=== PATIENT | male | born 1975 | race Caucasian/White ===

== ENCOUNTER 2017-01-10 20:04 | Inpatient (IN) | payer OTHER ==
[2017-01-10] MEDS: PROPOFOL/EMULSION 100 ML IV SCH ×2 (20:12→21:53)
[2017-01-10] MEDS ORDERED: NS 1,000 ML IV ONE (20:14)
--- NOTE | 2017-01-10 20:14 | EDPHY ---
H & P Time Seen by Provider: 01/10/17 20:04 HPI/ROS: CHIEF COMPLAINT: Seizure HISTORY OF PRESENT ILLNESS: History is from EMS as patient is nonverbal. Apparently at the concert tonight he was found grabbing onto a hand rail or balcony rail having seizure. He was helped to the ground. No history of fall or physical trauma. He received 4 mg IV Versed EN route and on arrival is obtunded and nonverbal. Further history and review of systems is unobtainable on arrival because the patient is nonverbal. PAST MEDICAL HISTORY: Unobtainable, nonverbal Family history: Unknown, nonverbal Social history: Unknown, nonverbal General Appearance: Patient is obtunded and snoring on arrival. Eyes: Pupils are 5 mm bilaterally ENT, Mouth: Patient has saliva in the mouth but no tongue lacerations or oral trauma. Respiratory: Snoring respirations. Cardiovascular: Regular rate and rhythm. Gastrointestinal: Abdomen is soft and non tender. Neurological: Patient is obtunded and nonverbal, no spontaneous movement of any extremity. Skin: Warm and dry, no rashes. No lacerations or evidence of trauma. Musculoskeletal: No peripheral edema and no joint swelling. No spinal step-off. No extremity deformity. Psychiatric: Unable, nonverbal. Emergency Department course/MDM: Patient had snoring respirations and clearly unable to protect his airway. He was intubated emergently on arrival for airway protection. Patient went immediately to CT scan. 1 g IV Keppra. Discussed with [facility] in detail. Agrees with evaluation and treatment plan, no further recommendations. Placed on a propofol drip for sedation. Admission to hospitalist service Dr. Barajas to the ICU. Constitutional: Initial Vital Signs Temperature (C) 37.6 C 01/10/17 20:05 Heart Rate 140 H 01/10/17 20:05 Respiratory Rate 12 01/10/17 20:05 Blood Pressure 134/70 H 01/10/17 20:05 O2 Sat (%) 99 01/10/17 20:05 O2 Delivery Mode Ventilator Allergies/Adverse Reactions: Unable to Assess Allergy (Unverified 01/10/17 21:50) Home Medications: Medication Instructions Recorded Unobtainable 01/10/17 Medical Decision Making - Diagnostics EKG Interpretation: 12-lead EKG interpreted by me; official reading is in trace master. My interpretation is sinus tachycardia rate 128 with no ischemic changes. Imaging Results: Imaging Impressions Chest X-Ray 01/10/17 20:14 Impression: 1. Endotracheal tube position with the tip approximately 3 cm above the patel. 2. Probable artifactual widening of the upper mediastinum. 3. Shallow aspiration exaggerates lung markings. 4. Probable normal heart size. Head CT 01/10/17 20:14 Impression: 1. Negative for hemorrhage or mass lesion. A seizure focus is not identified. 2. See above report for additional findings. Results called to Charan ZHENG M.D. on 01/10/2017 at 20:39 Procedures: Indication for the procedure was obtunded, status epilepticus. Consent is implied as the patient is obtunded. The patient was preoxygenated with 100% oxygen by face mask. The patient was sedated with propofol and paralyzed with Rocuronium 100 mg. The patient was orally endotracheally intubated under direct visualization with a 8.0 ETT. Tracheal intubation was confirmed with misting on the tube; breath sounds were auscultated equally bilaterally; appropriate color change with [place] Tidal CO2 detector, capnography waveform is appropriate, oxygen saturation after procedure is 98%. Chest X-ray shows ETT in good position. The procedure was performed by myself. Differential Diagnosis: Differential diagnosis considered for a seizure including but not limited to electrolyte abnormality, alcohol withdrawal, medication noncompliance, head injury, and breakthrough seizure. Consult/Admit Bed Type: [facility] 2056, [facility] 2109 Critical Care Time: Critical care time spent by me, Dr. 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 The organ system at risk was neurologic and I ordered anti seizure medication Keppra, propofol drip, multiple diagnostics, consultation with hospitalist and [facility]; to stabilize the patient and prevent worsening of the patient's condition. - Data Points Laboratory Results: Laboratory Results 01/10/17 20:17 01/10/17 20:17 01/10/17 01/10/17 01/10/17 20:45 20:35 20:17 WBC RBC Hgb POC Hgb Hct POC Hct MCV MCH MCHC RDW Plt Count MPV Neut % (Auto) Lymph % (Auto) Citrus % (Auto) Eos % (Auto) Baso % (Auto) Nucleat RBC Rel Count Absolute Neuts (auto) Absolute Lymphs (auto) Absolute Monos (auto) Absolute Eos (auto) Absolute Basos (auto) Absolute Nucleated RBC Immature Gran % Immature Gran # Puncture Site LEFT RADIAL Patient Temperature 37.9 DEGREES DEGREES pCO2 49 mmHg H mmHg (34-38) pO2 230 mmHg H mmHg (65-75) Total CO2 23 mEq/L mEq/L (23-27) ABG pH 7.27 L (7.35-7.45) ABG PO2/FiO2 Ratio 230 RATIO RATIO ABG HCO3 22 mEq/L mEq/L (22-26) ABG O2 Saturation 99 % H % (92-95) ABG Base Excess -4.8 mEq/L L mEq/L (-2.5-2.5) O2 Concentration % 100 % % (0-100) Actual Respiration Rate 14 Set Respiration Rate 14 SIMV YES Tidal Volume 700 PEEP 5 Peak Inspir Pressure 20.6 Pressure Support 7 POC Sodium Sodium POC Potassium Potassium POC Chloride Chloride Carbon Dioxide Anion Gap POC BUN BUN Creatinine POC Creatinine Estimated GFR Glucose POC Glucose Calcium Creatine Kinase 184 IU/L IU/L (0-224) Troponin I < 0.012 ng/mL ng/mL (0-0.034) Urine Opiates Screen NEGATIVE (NEGATIVE) Urine Barbiturates NEGATIVE (NEGATIVE) Ur Phencyclidine Scrn NEGATIVE (NEGATIVE) Ur Amphetamine Screen NON-NEGATIVE H (NEGATIVE) U Benzodiazepines Scrn NEGATIVE (NEGATIVE) Urine Cocaine Screen NEGATIVE (NEGATIVE) U Marijuana (THC) Screen NEGATIVE (NEGATIVE) Ethyl Alcohol 01/10/17 01/10/17 01/10/17 20:17 20:17 20:17 WBC 10.03 10^3/uL H 10^3/uL (3.80-9.50) RBC 4.97 10^6/uL 10^6/uL (4.40-6.38) Hgb 15.1 g/dL g/dL (13.7-17.5) POC Hgb Hct 43.3 % % (40.0-51.0) POC Hct MCV 87.1 fL fL (81.5-99.8) MCH 30.4 pg pg (27.9-34.1) MCHC 34.9 g/dL g/dL (32.4-36.7) RDW 11.9 % % (11.5-15.2) Plt Count 315 10^3/uL 10^3/uL (150-400) MPV 9.8 fL fL (8.7-11.7) Neut % (Auto) 73.2 % % (39.3-74.2) Lymph % (Auto) 18.7 % % (15.0-45.0) Citrus % (Auto) 6.3 % % (4.5-13.0) Eos % (Auto) 0.3 % L % (0.6-7.6) Baso % (Auto) 1.0 % % (0.3-1.7) Nucleat RBC Rel Count 0.0 % % (0.0-0.2) Absolute Neuts (auto) 7.34 10^3/uL H 10^3/uL (1.70-6.50) Absolute Lymphs (auto) 1.88 10^3/uL 10^3/uL (1.00-3.00) Absolute Monos (auto) 0.63 10^3/uL 10^3/uL (0.30-0.80) Absolute Eos (auto) 0.03 10^3/uL 10^3/uL (0.03-0.40) Absolute Basos (auto) 0.10 10^3/uL 10^3/uL (0.02-0.10) Absolute Nucleated RBC 0.00 10^3/uL 10^3/uL (0-0.01) Immature Gran % 0.5 % % (0.0-1.1) Immature Gran # 0.05 10^3/uL 10^3/uL (0.00-0.10) Puncture Site Patient Temperature pCO2 pO2 Total CO2 ABG pH ABG PO2/FiO2 Ratio ABG HCO3 ABG O2 Saturation ABG Base Excess O2 Concentration % Actual Respiration Rate Set Respiration Rate SIMV Tidal Volume PEEP Peak Inspir Pressure Pressure Support POC Sodium Sodium 142 mEq/L mEq/L (134-144) POC Potassium Potassium 4.9 mEq/L mEq/L (3.5-5.2) POC Chloride Chloride 106 mEq/L mEq/L (97-110) Carbon Dioxide 20 mEq/l L mEq/l (22-31) Anion Gap 16 mEq/L mEq/L (8-16) POC BUN BUN 15 mg/dL mg/dL (7-23) Creatinine 1.1 mg/dL mg/dL (0.7-1.3) POC Creatinine Estimated GFR > 60 Glucose 88 mg/dL mg/dL (70-100) POC Glucose Calcium 9.1 mg/dL mg/dL (8.5-10.4) Creatine Kinase Troponin I Urine Opiates Screen Urine Barbiturates Ur Phencyclidine Scrn Ur Amphetamine Screen U Benzodiazepines Scrn Urine Cocaine Screen U Marijuana (THC) Screen Ethyl Alcohol 244 mg/dL H mg/dL (0-10) 01/10/17 20:08 WBC RBC Hgb POC Hgb 16.0 gm/dL gm/dL (13.7-17.5) Hct POC Hct 47 % % (40-51) MCV MCH MCHC RDW Plt Count MPV Neut % (Auto) Lymph % (Auto) Citrus % (Auto) Eos % (Auto) Baso % (Auto) Nucleat RBC Rel Count Absolute Neuts (auto) Absolute Lymphs (auto) Absolute Monos (auto) Absolute Eos (auto) Absolute Basos (auto) Absolute Nucleated RBC Immature Gran % Immature Gran # Puncture Site Patient Temperature pCO2 pO2 Total CO2 ABG pH ABG PO2/FiO2 Ratio ABG HCO3 ABG O2 Saturation ABG Base Excess O2 Concentration % Actual Respiration Rate Set Respiration Rate SIMV Tidal Volume PEEP Peak Inspir Pressure Pressure Support POC Sodium 143 mEq/L mEq/L (134-144) Sodium POC Potassium 4.5 mEq/L mEq/L (3.3-5.0) Potassium POC Chloride 105 mEq/L mEq/L (97-110) Chloride Carbon Dioxide Anion Gap POC BUN 16 mg/dL mg/dL (7-23) BUN Creatinine POC Creatinine 1.2 mg/dL mg/dL (0.7-1.3) Estimated GFR Glucose POC Glucose 92 mg/dL mg/dL (70-100) Calcium Creatine Kinase Troponin I Urine Opiates Screen Urine Barbiturates Ur Phencyclidine Scrn Ur Amphetamine Screen U Benzodiazepines Scrn Urine Cocaine Screen U Marijuana (THC) Screen Ethyl Alcohol Medications Given: Discontinued Medications Sodium Chloride (Ns) 1,000 mls @ 0 mls/hr IV ONCE ONE; Wide Open PRN Reason: Protocol Stop: 01/10/17 20:15 Last Admin: 01/10/17 20:11 Dose: 1,000 mls Levetiracetam 1,000 mg/ Sodium (Chloride) 110 mls @ 420 mls/hr IV EDNOW ONE Stop: 01/10/17 20:42 Last Admin: 01/10/17 20:43 Dose: 110 mls Propofol (Diprivan) 100 mg IVP EDNOW ONE Stop: 01/10/17 20:16 Last Admin: 01/10/17 20:09 Dose: 100 mg Rocuronium Susan (Zemuron) 100 mg IVP EDNOW ONE Stop: 01/10/17 20:16 Last Admin: 01/10/17 20:09 Dose: 100 mg Point of Care Test Results: 01/10/17 20:08 POC Sodium 143 POC Potassium 4.5 POC Chloride 105 POC BUN 16 POC Creatinine 1.2 POC Glucose 92 Departure - Departure Disposition: [facility] Acute Clinical Impression: Seizure Condition: Critical
[2017-01-10] MEDS ORDERED: ROCURONIUM 100 MG/10 ML VIAL IVP ONE (20:15)
[2017-01-10] MEDS ORDERED: PROPOFOL 200 MG/20 ML VIAL IVP ONE (20:15)
[2017-01-10] MEDS ORDERED: levETIRAcetam 1,000 MG in NS 100 ML IV ONE (20:27)
[2017-01-10 20:32] LABS: % IMMATURE GRANULYOCYTES 0.5 % (0.0-1.1); ABSOLUTE IMMATURE GRANULOCYTES 0.05 10^3/uL (0.00-0.10); ADD DIFF? NO; ADD MORPH? NO; ADD SCAN? NO; ATYPICAL LYMPHOCYTE FLAG 10 (0-99); FRAGMENT RBC FLAG 0 (0-99); HEMATOCRIT 43.3 % (40.0-51.0); HEMOGLOBIN 15.1 g/dL (13.7-17.5); LEFT SHIFT FLG 0 (0-99); LIPEMIA HEMOLYSIS FLAG 90 (0-99); MEAN CELL HEMOGLOBIN 30.4 pg (27.9-34.1); MEAN CELL HEMOGLOBIN CONCENTR. 34.9 g/dL (32.4-36.7); MEAN CELL VOLUME 87.1 fL (81.5-99.8); MEAN PLATELET VOLUME 9.8 fL (8.7-11.7); PLATELET CLUMPS FLAG 20 (0-99); PLATELET COUNT 315 10^3/uL (150-400); RED BLOOD CELL COUNT 4.97 10^6/uL (4.40-6.38); RED CELL DISTRIBUTION WIDTH 11.9 % (11.5-15.2)
--- NOTE | 2017-01-10 20:38 | CPEKG ---
Heart Rate: 128 RR Interval: 469 P-R Interval: 144 QRSD Interval: 86 QT Interval: 312 QTC Interval: 456 P Adin: 47 QRS Adin: 51 T Wave Adin: 21 EKG Severity - OTHERWISE NORMAL ECG - EKG Impression: SINUS TACHYCARDIA Electronically Signed By: Charan Sethi 10-Jan-2017 22:09:37
[2017-01-10 20:41] LABS: ANION GAP 16 mEq/L (8-16); CALCIUM 9.1 mg/dL (8.5-10.4); CARBON DIOXIDE 20 mEq/l (22-31); CHLORIDE 106 mEq/L (97-110); CREATININE 1.1 mg/dL (0.7-1.3); GLOMERULAR FILTRATION RATE > 60; GLUCOSE 88 mg/dL (70-100); POTASSIUM 4.9 mEq/L (3.5-5.2); SODIUM 142 mEq/L (134-144)
[2017-01-10 20:46] LABS: ETHANOL SERUM 244 mg/dL (0-10)
[2017-01-10 20:53] LABS: BASE EXCESS -4.8 mEq/L (-2.5-2.5); BICARBONATE 22 mEq/L (22-26); MEASURED OXYGEN SATURATION 99 % (92-95); PCO2 49 mmHg (34-38); PO2 230 mmHg (65-75); TCO2 23 mEq/L (23-27)
[2017-01-10 20:54] LABS: O2 CONCENTRATIION 100 % (0-100); P/F RATIO 230 RATIO; PATIENT RATE 14; PIP 20.6; PRESSURE SUPPORT 7; SIMV YES
[2017-01-10] MEDS ORDERED: LORazepam 2 MG/ML INJ IVP PRN (22:29)
[2017-01-10] MEDS ORDERED: ACETAMINOPHEN 650 MG SUPP PR PRN (22:29)
[2017-01-10] MEDS ORDERED: NS 1,000 ML IV SCH (22:30)
--- NOTE | 2017-01-10 22:33 | PDGENHP ---
History and Physical - Chief Complaint seizure - History of Present Illness Patient is a 41-year-old male with an unknown past medical history who was brought to the ED by EMS after being [place] unresponsive [place] the [employer] [place]. Patient is obtundent unable to provide any medical history. Per report, patient was at the concert and was found to be unresponsive while grabbing onto a hand rail, having what appeared to be a generalized tonic- clonic seizure. EMS was called him patient was helped to the ground without trauma. On EMS arrival he was given 4 mg of Versed and transported to the ED for further evaluation. On arrival to the ED patient was afebrile, tachycardic, stable BP, however was obtunded and not protecting his airway. He was then intubated, with ETT placement confirmed on CXR. Labs revealed mild leukocytosis, normal BMP and urine drug screen was positive for amphetamines. CT head was unremarkable. He was then admitted to the ICU for further management. History Information - Allergies/Home Medication List Allergies/Adverse Reactions: Unable to Assess Allergy (Unverified 01/10/17 21:50) Home Medications: Unobtainable 01/10/17 [Last Taken Unknown] I have personally reviewed and updated: family history, medical history, social history, surgical history - Past Medical History Additional medical history: unobtainable - Surgical History Additional surgical history: unobtainable - Family History Additional family history: unobtainable - Social History Smoking Status: Unknown if ever smoked Additional social history: unobtainable; urine drug screen positive for amphetamines Review of Systems Review of Systems: unobtainable due to altered mental status Physical Exam Temp Pulse Resp BP Pulse Ox 37.6 C 119 H 12 101/58 L 97 01/10/17 21:14 01/10/17 21:14 01/10/17 21:14 01/10/17 21:14 01/10/17 21:14 Constitutional: not in pain, other (obtunded, intubated) Eyes: anicteric sclera, other (pupils dilated, minimally responsive) Ears, Nose, Mouth, Throat: moist mucous membranes, hearing normal, ears appear normal, no oral mucosal ulcers Cardiovascular: regular rate and rhythym, no murmur, rub, or gallop, pulses symmetric bilaterally, tachycardia, No JVD, No edema Peripheral Pulses: 2+: dorsalis-pedis (R), dorsalis-pedis (L) Respiratory: no respiratory distress, no rales or rhonchi, clear to auscultation , other (ETT in place) Gastrointestinal: normoactive bowel sounds, soft, non-tender abdomen, no palpable masses Genitourinary: no bladder fullness, no bladder tenderness Skin: warm, normal color, no rashes or abrasions, no fluctuance, no induration, No mottled Neurologic: other (unable to assess; gag present, moving all extremities, nonpurposefully; pupils 4mm, minimally responsive) Lab Data & Imaging Review 01/10/17 20:17 01/10/17 20: WBC 10.03 10^3/uL (3.80-9.50) H 01/10/17 20: RBC 4.97 10^6/uL (4.40-6.38) 01/10/17 20: Hgb 15.1 g/dL (13.7-17.5) 01/10/17 20: POC Hgb 16.0 gm/dL (13.7-17.5) 01/10/17 20:08 Hct 43.3 % (40.0-51.0) 01/10/17 20: POC Hct 47 % (40-51) 01/10/17 20:08 MCV 87.1 fL (81.5-99.8) 01/10/17 20: MCH 30.4 pg (27.9-34.1) 01/10/17 20: MCHC 34.9 g/dL (32.4-36.7) 01/10/17 20: RDW 11.9 % (11.5-15.2) 01/10/17 20: Plt Count 315 10^3/uL (150-400) 01/10/17 20: MPV 9.8 fL (8.7-11.7) 01/10/17 20: Neut % (Auto) 73.2 % (39.3-74.2) 01/10/17 20: Lymph % (Auto) 18.7 % (15.0-45.0) 01/10/17 20: [place] % (Auto) 6.3 % (4.5-13.0) 06/10/17 20:17 Eos % (Auto) 0.3 % (0.6-7.6) L 01/10/17 20:17 Baso % (Auto) 1.0 % (0.3-1.7) 01/10/17 20:17 Nucleat RBC Rel Count 0.0 % (0.0-0.2) 01/10/17 20:17 Absolute Neuts (auto) 7.34 10^3/uL (1.70-6.50) H 01/10/17 20:17 Absolute Lymphs (auto) 1.88 10^3/uL (1.00-3.00) 01/10/17 20: Absolute Monos (auto) 0.63 10^3/uL (0.30-0.80) 01/10/17 20: Absolute Eos (auto) 0.03 10^3/uL (0.03-0.40) 01/10/17 20:17 Absolute Basos (auto) 0.10 10^3/uL (0.02-0.10) 01/10/17 20:17 Absolute Nucleated RBC 0.00 10^3/uL (0-0.01) 01/10/17 20: Immature Gran % 0.5 % (0.0-1.1) 01/10/17: Immature Gran # 0.05 10^3/uL (0.00-0.10) 01/10/17 20:17 Puncture Site LEFT RADIAL 01/10/17 20:45 Patient Temperature 37.9 DEGREES 01/10/17 20:45 pCO2 49 mmHg (34-38) H 01/10/17 20:45 pO2 230 mmHg (65-75) H 01/10/17 20:45 Total CO2 23 mEq/L (23-27) 01/10/17 20:45 ABG pH 7.27 (7.35-7.45) L 01/10/17 20:45 ABG PO2/FiO2 Ratio 230 RATIO 01/10/17 20:45 ABG HCO3 22 mEq/L (22-26) 01/10/17 20:45 ABG O2 Saturation 99 % (92-95) H 01/10/17 20:45 ABG Base Excess -4.8 mEq/L (-2.5-2.5) L 01/10/17 20:45 O2 Concentration % 100 % (0-100) 01/10/17 20:45 Actual Respiration Rate 14 01/10/17 20:45 Set Respiration Rate 14 01/10/17 20:45 SIMV YES 01/10/17 20:45 Tidal Volume 700 01/10/17 20:45 PEEP 5 01/10/17 20:45 Peak Inspir Pressure 20.6 01/10/17 20:45 Pressure Support 7 01/10/17 20:45 POC Sodium 143 mEq/L (134-144) 01/10/17 20:08 Sodium 142 mEq/L (134-144) 01/10/17 20:17 POC Potassium 4.5 mEq/L (3.3-5.0) 01/10/17 20:08 Potassium 4.9 mEq/L (3.5-5.2) 01/10/17 20:17 POC Chloride 105 mEq/L (97-110) 01/10/17 20:08 Chloride 106 mEq/L (97-110) 01/10/17 20:17 Carbon Dioxide 20 mEq/l (22-31) L 01/10/17 20:17 Anion Gap 16 mEq/L (8-16) 01/10/17 20:17 POC BUN 16 mg/dL (7-23) 01/10/17 20:08 BUN 15 mg/dL (7-23) 01/10/17 20:17 Creatinine 1.1 mg/dL (0.7-1.3) 01/10/17 20:17 POC Creatinine 1.2 mg/dL (0.7-1.3) 01/10/17 20:08 Estimated GFR > 60 01/10/17 20:17 Glucose 88 mg/dL (70-100) 01/10/17 20:17 POC Glucose 92 mg/dL (70-100) 01/10/17 20:08 Calcium 9.1 mg/dL (8.5-10.4) 01/10/17 20:17 Urine Opiates Screen NEGATIVE (NEGATIVE) 01/10/17 20:35 Urine Barbiturates NEGATIVE (NEGATIVE) 01/10/17 20:35 Ur Phencyclidine Scrn NEGATIVE (NEGATIVE) 01/10/17 20:35 Ur Amphetamine Screen NON-NEGATIVE (NEGATIVE) H 01/10/17 20:35 U Benzodiazepines Scrn NEGATIVE (NEGATIVE) 01/10/17 20:35 Urine Cocaine Screen NEGATIVE (NEGATIVE) 01/10/17 20:35 U Marijuana (THC) Screen NEGATIVE (NEGATIVE) 01/10/17 20:35 Ethyl Alcohol 244 mg/dL (0-10) H 01/10/17 20:17 Visualized and Interpreted Chest x-ray results: Yes Chest X-Ray results: no infiltrate, other (ETT above the patel; NG tube in the stomach) Visualized and Interpreted EKG results: Yes EKG additional interpertation: sinus tachycardia without st/t wave abnormalities Assessment & Plan Assessment: Patient is a 41 year old male with an unknown medical history who was brought into the ED after having a witnessed convulsive episode that appeared consistent with a generalized tonic clonic seizure. ED course included intubation for airway protection, drug screen positive for amphetamines, CT head negative for acute abnormalities. Plan: # acute encephalopathy Per EMS's description of there initial evaluation of the patient, patient apparently had a GTC seizure. Patient's PMH is not known at this time. On arrival, patient was obtunded, may be related to a post-ictal state vs Versed admin by EMS vs acute intoxication (drug/etoh). Preliminary investigation has revealed normal CT head, drug screen positive for amphetamines. Currently, patient is sedated with propofol and fentanyl for intubation protocol. He has received a loading dose of keppra in the ED and has not had any repeat seizure episodes since arrival. Will reassess neurologic exam with sedation vacation in AM. - cont mechanical ventilation - neurology consult for apparent new onset seizure - cont keppra 500 mg BID # acute respiratory failure Patient intubated for airway protection. Will continue mechanical ventilation and reassess for extubation as mental status allows. Initial ABG did show mild hypercarbia, which has improved. CXR does not show any acute infiltrate or abnormality. - follow AM CXR - trend ABGs - assess mental status for extubation in AM - GI prophylaxis # tachycardia Patient was significantly tachycardic on arrival to the ED and has remained so overnight. EKG shows sinus tachycardia without evidence of ischemia. Troponin/ CK are both negative. Likely related to acute amphetamine intoxication. HR has improved with IVF hydration. Will continue to monitor. No localizing signs of infection at this time. # intoxication ETOH and amphetamines are both positive, have likely contributed to above presentation. Will place on CIWA protocol, monitor for signs of withdrawal, supplement thiamine/folate/mvn. # dispo: admit to inpatient service for likely > 2 [place] stay # gen NPO DVT ppx: lovenox Full code
[2017-01-10 23:03] LABS: TROPONIN I < 0.012 ng/mL (0-0.034)
[2017-01-10 23:10] LABS: BASE EXCESS -2.5 mEq/L (-2.5-2.5); BICARBONATE 22 mEq/L (22-26); MEASURED OXYGEN SATURATION 96 % (92-95); PCO2 40 mmHg (34-38); PO2 94 mmHg (65-75); TCO2 23 mEq/L (23-27)
[2017-01-10 23:12] LABS: END TIDAL CO2 32; PATIENT RATE 18; SIMV YES
[2017-01-10 23:13] LABS: PRESSURE SUPPORT 7
[2017-01-11 00:16] LABS: COLOR AMBER; LEUKOCYTE ESTERASE,URINE NEGATIVE (NEGATIVE); NITRITE,URINE NEGATIVE (NEGATIVE)
[2017-01-11 00:32] LABS: RBC,URINE 25-50 /hpf (0-3)
[2017-01-11 00:33] LABS: WBC,URINE NONE SEEN /hpf (0-3)
[2017-01-11] MEDS: PROPOFOL/EMULSION 100 ML IV SCH ×2 (00:55→04:43)
[2017-01-11] MEDS ORDERED: fentaNYL/NACL 100 ML IV SCH (02:10)
[2017-01-11 03:29] LABS: BASE EXCESS -4.4 mEq/L (-2.5-2.5); BICARBONATE 20 mEq/L (22-26); MEASURED OXYGEN SATURATION 96 % (92-95); PCO2 36 mmHg (34-38); PO2 86 mmHg (65-75); TCO2 21 mEq/L (23-27)
[2017-01-11 03:30] LABS: END TIDAL CO2 27; O2 CONCENTRATIION 60 % (0-100); P/F RATIO 143 RATIO; SIMV YES
[2017-01-11 03:31] LABS: PATIENT RATE 18; PRESSURE SUPPORT 7
[2017-01-11 04:54] LABS: % IMMATURE GRANULYOCYTES 0.3 % (0.0-1.1); ABSOLUTE IMMATURE GRANULOCYTES 0.03 10^3/uL (0.00-0.10); ADD DIFF? NO; ADD MORPH? NO; ADD SCAN? NO; ATYPICAL LYMPHOCYTE FLAG 0 (0-99); FRAGMENT RBC FLAG 0 (0-99); HEMATOCRIT 37.2 % (40.0-51.0); HEMOGLOBIN 12.9 g/dL (13.7-17.5); LEFT SHIFT FLG 0 (0-99); LIPEMIA HEMOLYSIS FLAG 90 (0-99); MEAN CELL HEMOGLOBIN 30.1 pg (27.9-34.1); MEAN CELL HEMOGLOBIN CONCENTR. 34.7 g/dL (32.4-36.7); MEAN CELL VOLUME 86.7 fL (81.5-99.8); MEAN PLATELET VOLUME 9.7 fL (8.7-11.7); PLATELET CLUMPS FLAG 0 (0-99); PLATELET COUNT 241 10^3/uL (150-400); RED BLOOD CELL COUNT 4.29 10^6/uL (4.40-6.38); RED CELL DISTRIBUTION WIDTH 12.1 % (11.5-15.2)
[2017-01-11 05:05] LABS: INR 1.06 (0.83-1.16); PROTIME(PATIENT) 13.7 SEC (12.0-15.0)
[2017-01-11 05:10] LABS: ALANINE AMINOTRANSFERASE 62 IU/L (21-72); ALBUMIN 3.6 g/dL (3.5-5.0); ALKALINE PHOSPHATASE 60 IU/L (38-126); ANION GAP 10 mEq/L (8-16); ASPARTATE AMINOTRANSFERASE 66 IU/L (17-59); BILIRUBIN,TOTAL 0.4 mg/dL (0.1-1.4); CALCIUM 8.5 mg/dL (8.5-10.4); CARBON DIOXIDE 21 mEq/l (22-31); CHLORIDE 109 mEq/L (97-110); GLOMERULAR FILTRATION RATE > 60; GLUCOSE 86 mg/dL (70-100); MAGNESIUM 1.8 mg/dL (1.6-2.3); SODIUM 140 mEq/L (134-144); TOTAL PROTEIN 5.8 g/dL (6.3-8.2)
[2017-01-11 05:20] LABS: TROPONIN I < 0.012 ng/mL (0-0.034)
[2017-01-11 06:13] LABS: CK-MB INTERPRETATION NEGATIVE (NEGATIVE)
--- NOTE | 2017-01-11 06:38 | CPEKG ---
Heart Rate: 90 RR Interval: 667 P-R Interval: 148 QRSD Interval: 86 QT Interval: 356 QTC Interval: 436 P [place]: 33 QRS [place]: 25 T Wave [place]: 26 EKG Severity - NORMAL ECG - EKG Impression: SINUS RHYTHM Electronically Signed By: Levar Green 11-Jan-2017 09:59:48
[2017-01-11] MEDS ORDERED: levETIRAcetam 500 MG in NS 100 ML IV SCH (09:00)
[2017-01-11] MEDS ORDERED: FAMOTIDINE 20 MG/NACL 50 ML IV SCH (09:00)
[2017-01-11] MEDS ORDERED: ENOXAPARIN 40 MG/0.4 ML SYR SC SCH (09:00)
[2017-01-11] MEDS ORDERED: IBUPROFEN 200 MG TAB PO PRN (12:10)
[2017-01-11 12:14] VITALS: BP 146/92; PULSE 85; RESP 18; O2SAT 92
[2017-01-11 12:15] VITALS: TEMP 97.6
[2017-01-11] MEDS ORDERED: LEVOTHYROXINE 150 MCG TAB PO SCH (12:15)
[2017-01-11] MEDS ORDERED: LISINOPRIL 20 MG TAB PO SCH (12:15)
--- NOTE | 2017-01-11 13:24 | GCON ---
[f rep st] CONSULTATION PULMONARY CRITICAL CARE CONSULTATION DATE OF CONSULTATION: 01/11/2017 REASON FOR CONSULTATION: Acute respiratory failure following seizure and drug overdose. HISTORY: The patient is a 41-year-old gentleman who was at the [employer] last night. Cade goldberg was drinking alcohol and was given some "crystals" to ingest. Sometime afterward, he apparently h ad a tonic-clonic grand mal seizure. EMS was called. He was given 4 mg of Versed and taken to the emergency department. He was tachycardic, but obtunded. He was intubated secondary to his mental s tatus and the inability to protect his airway. He was admitted to the intensive care unit and kept on the ventilator overnight. Tox screen was positive for alcohol with a BAL of 240 and positive amphetamines on tox screen. He w as kept on the ventilator overnight. This morning, sedation was decreased. He started to wake up, was appropriate, could answer questions, was able to tolerate CPAP without problems, and was subsequ ently extubated. Postextubation, his pulmonary status has been acceptable. He has had some pulmona ry congestion, but is maintaining saturations on room air. He did chip 2 teeth likely during his se izure. These 2 chips were evident on extubation this morning. PAST MEDICAL HISTORY: Remarkable for hypertension and hyperlipidemia and hypothyroidism. MEDICATIONS: At home include lisinopril, levothyroxine, atorvastatin. SOCIAL HISTORY: The patient is . He has called his and she is here to take him home. He does smoke a pack of cigarettes per day, and drinks alcohol, generally nightly. He does not rout inely ingest drugs. FAMILY HISTORY: Noncontributory. REVIEW OF SYSTEMS: Negative, except as outlined above. PHYSICAL EXAMINATION: GENERAL: Reveals a gentleman who is appropriate. He is in no acute distress . VITAL SIGNS: Blood pressure is 150/90, heart rate 85 with sinus rhythm on the monitor, respirato ry rate 18, on room air saturations are 92%. He is afebrile. HEENT: Unremarkable for lymphadenopa thy or thyromegaly. There are no significant signs of oral trauma. CHEST: Reveals coarse breath s ounds bilaterally without rhonchi, rales, or significant wheezes. With cough and forced exhalation, there is mild central bronchial congestion. There is no evidence of consolidation. HEART: Regula r in rate and rhythm without significant murmur or gallop. ABDOMEN: Soft, nontender. Bowel sounds are present. EXTREMITIES: Unremarkable for trauma, edema, cords or tenderness. SKIN: Without ra sh or significant lesions. NEUROLOGIC: Intact. ASSESSMENT: 1. Status post drug overdose, presumably with methamphetamine. This resulted in a seizure. CT sca n of the head was negative. He did receive Keppra. However, further Keppra and seizure medications would not appear to be indicated at this time. 2. Status post acute respiratory failure. Resolved. He does have some bronchial congestion, but n o evidence of aspiration/aspiration pneumonia clinically. Chest x-ray shows only some minimal atele ctatic changes at the bases. 3. Acute alcohol intoxication. Alcohol withdrawal seems unlikely by his history. 4. History of tobacco abuse. Smoking cessation is recommended. 5. Drug use: Cessation of drug abuse, even binge use, is also recommended. The above was discussed with the patient and his . PLAN AND RECOMMENDATIONS: The patient will be discharged to home. If he has increasing problems wi th his pulmonary status or signs and symptoms of bronchopneumonia today, he is to call back to the ntensive Care Unit and an antibiotic will be called in. Otherwise, tomorrow, he can follow up with his primary care physician in [place] as needed. The patient is ambulatory, has urinated, has r elatively normal mental status and stable vital signs, and can be discharged to home. His will drive him home. /[id number]
--- NOTE | 2017-01-11 13:40 | GDS ---
[f rep st] DISCHARGE SUMMARY DIAGNOSES: 1. Seizure, likely secondary to substance abuse. 2. Acute intoxication with amphetamines and alcohol. 3. Hypertension. 4. Dyslipidemia. HOSPITAL COURSE: The patient is a 41-year-old who was brought in from the [facility] being found unresponsive. Apparently, he had been at the concert, grabbed the railing, and was n oted to have a seizure. He was brought in and was intubated for airway protection in the emergency department, and transported to the intensive care unit. He did well overnight and was extubated wit hout any issues early the next morning. Currently, he is alert and oriented and back to his baselin e. Apparently, he was given some drugs, and they were "not what he thought they would be", which desire quach led to his presenting symptoms. This was an unintentional intoxication and overdose. Currentl y, he is alert and oriented. His mental status is back to baseline. He is ambulating without diffi culties. He is able to urinate and eat without problems. Procedures done during his hospitalization include a head CT, which was negative and a chest x-ray t hat showed some basilar atelectasis. CONDITION ON DISCHARGE: Good. VITAL SIGNS: Stable. GENERAL: He is alert and oriented. HEART: Regular. LUNGS: Clear. EXTREMITIES: Moves all 4 extremities equally. DISCHARGE MEDICATIONS: Please see discharge medication form. He will resume his home medications. FOLLOWUP INSTRUCTIONS: He should follow up with his primary care provider this week. Certainly, if he develops worsening cough or shortness of breath today, he can call the intensive care unit. /[id number]/MODL
[2017-01-12] MEDS ORDERED: ATORVASTATIN CALCIUM 40 MG TAB PO SCH (09:00)
--- NOTE | 2017-01-14 14:44 | PQFORM ---
PHYSICIAN QUERY FORM Needs Your Response This query form is being sent to you to assure this patient record is coded properly. Please respond to the question below: DIRECTOR OF VIDEO ANALYTICS QUESTION: Dear Dr. Holliday, In reviewing this patients medical record the diagnosis of 'acute respiratory failure' is documented in Dr. Gtz's H&P and Dr. Goss Consult report. Patient presented with 'snoring respiration and unable to protect airway,' was then intubated on put on mechanical ventilation in the ER. After study, should the diagnosis of 'Acute respiratory failure' be included in the Discharge Summary? Yes _x No Other more appropriate diagnosis Unable to determine Thank you Maryjane Mireles, [facility] HIM/Coding Dept [phone] INSTRUCTIONS FOR RESPONSE: Answer question by clicking on the "Edit Document" button. Move cursor to area below the stars. When complete, hit "Save." Click on the "Sign" button, then click "Sign" again. Type in your PIN and hit "Enter." MTDD
== END 2017-01-11 13:00 | disposition home or self-care (01) | DRG 100 ==
LOC: EDBD 20:04 → F2N 21:25
PROVIDERS: ADMIT Internal Medicine; ATTEND Internal Medicine
PROC: 5A1935Z Respiratory Ventilation, Less than 24 Consecutive Hours (ICD-10-PCS; principal; 2017-01-10)
PROC: 0BH17EZ Insertion of Endotracheal Airway into Trachea, Via Natural or Artificial Opening (ICD-10-PCS; principal; 2017-01-10)
DX: G40.89 Other seizures (principal); F15.129 Other stimulant abuse with intoxication, unspecified; J96.00 Acute respiratory failure, unspecified whether with hypoxia or hypercapnia; F10.129 Alcohol abuse with intoxication, unspecified; I10 Essential (primary) hypertension; E78.5 Hyperlipidemia, unspecified; Y90.8 Blood alcohol level of 240 mg/100 ml or more; E03.9 Hypothyroidism, unspecified; Z72.0 Tobacco use
CPT/HCPCS: 80305; 82947-QW; 96374; G0480; J1650; J1953; J2060; J2704; J3010